=== PATIENT | female | born 1940 | race Caucasian/White ===

== ENCOUNTER 2017-06-24 23:52 | Inpatient (IN) ==
[2017-06-25] MEDS ORDERED: ALBUTEROL/IPRATROPIUM 2.5mg-0.5mg/3ml NEB AEROSOL ONE (00:19)
--- NOTE | 2017-06-25 00:38 | Emergency Department Report ---
Asthma HPI - General Chief Complaint: Upper Respiratory Infection Stated Complaint: decreased loc, decreased resp Time Seen by Provider: 06/24/17 23:56 Source: patient, EMS, RN notes reviewed (the nurse taking care of the patient also contributed to her history) Mode of arrival: EMS Limitations: no limitations - History of Present Illness HPI Narrative: Over the past 48 hours since the patient was seen in the ER for transient hypoxemia over the weekend, patient has developed elevated temperature up to 100.2, and increasing weakness, increasing somnolence, and tonight the patient was found to be hypotensive with significant hypoxemia requiring 5 L of oxygen. Normally night the patient uses 2 L of oxygen and while she is awake and active does not require oxygen at all. Currently the patient has no complaint, and the half-way states that the patient had no complaints throughout the past 2 days. Patient seemed to have respiratory difficulty in route, was given one albuterol treatment, and her respiratory difficulty seemed to improve. Patient does have a history of congestive heart failure and COPD, and is oxygen dependent at night. Nursing reported one episode of hypotension with blood pressure 82/48, however on recheck by the same nurse as well as EMS, patient had normal blood pressures of 111 to 115 systolic. Uncertain whether this one reading of low blood pressure was accurate. - Related Data Home Medications Medication Instructions Recorded Confirmed Acetaminophen [Acetaminophen Extra 1,000 mg PO TID 05/26/17 06/25/17 Strength] Ascorbate Calcium [Vitamin C] 500 mg PO BID 05/26/17 06/25/17 Aspirin [Aspirin EC] 81 mg PO DAILY 05/26/17 06/25/17 Bisacodyl Supp [Dulcolax] 10 mg RECTALLY DAILY PRN 05/26/17 06/25/17 Calcium 500 + D [Os Rajat-D 500] 1 tab PO DAILY 05/26/17 06/25/17 Cholecalciferol (Vitamin D3) 2,000 unit PO DAILY 05/26/17 06/25/17 [Vitamin D3] Citalopram [Celexa] 20 mg PO DAILY 05/26/17 06/25/17 CloNIDine [Catapres] 0.1 mg PO HS 05/26/17 06/25/17 Codeine Phosphate/Guaifenesin 5 - 10 ml PO NOON PRN 05/26/17 06/25/17 [Robafen AC Oral Solution] Divalproex ER [Depakote ER] 1,500 mg PO HS 05/26/17 06/25/17 Divalproex ER [Depakote ER] 250 mg PO HS 05/26/17 06/25/17 Furosemide [Lasix] 20 mg PO DAILY 05/26/17 06/25/17 Lisinopril [Prinivil] 2.5 mg PO HS 05/26/17 06/25/17 Mag Hydrox/Aluminum Hyd/Simeth 30 ml PO Q4H PRN 05/26/17 06/25/17 [Alum-Mag Hydroxide-Simeth Liq] Magnesium Hydroxide [Milk of 30 ml PO DAILY PRN 05/26/17 06/25/17 Magnesia] Metformin HCl [Glucophage] 500 mg PO BIDWM 05/26/17 06/25/17 Multi-Vitamin Plain [Theragran] 1 tab PO DAILY 05/26/17 06/25/17 Naproxen [Naprosyn 500 mg] 500 mg PO BID PRN 05/26/17 06/25/17 Oxybutynin Chloride [Oxybutynin 10 mg PO DAILY 05/26/17 06/25/17 Chloride ER] Quetiapine Fumarate 200 mg PO NOON 05/26/17 06/25/17 Quetiapine Fumarate [Seroquel] 300 mg PO BID 05/26/17 06/25/17 Simvastatin [Simvastatin] 20 mg PO HS 05/26/17 06/25/17 Trazodone [Desyrel] 25 mg PO QAM 05/26/17 06/25/17 Allergies Allergy/AdvReac Type Severity Reaction Status Date / Time amoxicillin [From Augmentin] Allergy Verified 06/25/17 00:05 clavulanic acid Allergy Verified 06/25/17 00:05 [From Augmentin] Review of Systems All systems: reviewed and negative except as stated PFSH Patient Stated Medical History Cardiac Arrhythmia Yes Congestive Heart Failure Yes Diabetes Mellitus Type 2 Yes Hx Incontinence Yes Other Yes: Urethral Stenosis Other Musculoskeletal Yes: Kyphosis, Costochondritis Depression Yes Schizophrenia Yes Other Behavioral Health Yes: Tardive Dyskinesia, Psychogenic polydipsia COPD Medical History Updates: Unknown. From med list: CAD. Constipation. Osteopenia. Depression. Bipolar D/o. CHF. HTN. DM. HL. Overactive bladder. Insomnia - Social History Smoking status: Unknown if ever smoked Substance use type: does not use Physical Exam - Limitations Limitations: no limitations - General General appearance: alert - Normal Exams: Head:: Normocephalic without trauma Eyes:: Pupils are PERRLA w/ EOMI, No scleral icterus, irritation, or foreign bodies noted ENMT:: No facial trauma, nasal exudates, pharyngeal erythema, or exudates are noted Neck:: Full range of motion, without adenopathy, JVD, bruits or thyromegaly Abdomen:: Bowel sounds positive, soft, non-tender, non-distended, no hepatosplenomegaly, masses or bruits noted Lymphatic:: No lymphadenopathy, or lymphedema noted Musculoskeletal:: No tenderness, or deformity noted, good range of motion, all extremities Integumentary:: No rashes, hives, or bruising noted, hair and nails, without abnormality Neurological:: Patient is alert, and oriented, cranial nerves, motor/sensory/ cerebellar, exams w/o gross deficits, to observation Psychiatric:: Patient exhibits, appropriate attention, emotion and affect - Chest Chest inspection: Present: normal inspection, symmetric chest wall rise. Absent : tenderness - Respiratory Respiratory exam: Present: wheezes (mild only at the end of expiration), crackles (dense coarse crackles in the bases bilaterally). Absent: normal lung sounds bilaterally (course rhonchi at the end of expiration, with mild wheezes only.), respiratory distress, stridor, accessory muscle use, prolonged expiratory phase - Skin Skin exam: Present: other (patient has no edema, no tenderness of the limbs) Course Vital Signs Temperature 98.5 F 06/24/17 23:52 Pulse Rate 96 06/24/17 23:52 Respiratory Rate 22 06/24/17 23:52 Blood Pressure 111/53 06/24/17 23:52 Pulse Oximetry 92 06/24/17 23:52 Temperature 98.5 F 06/24/17 23:52 Pulse Rate 87 06/25/17 03:00 Respiratory Rate 18 06/25/17 00:36 Blood Pressure 119/59 06/25/17 03:00 Pulse Oximetry 95 06/25/17 03:00 Dyspnea - MDM Narrative Medical decision making narrative: Mild hypoxemia, 88-89% on 5 L nasal cannula. Patient continues to have no subjective dyspnea Patient is given one DuoNeb treatment in the ER - modest improvement, no significant improvement in oxygenation. CBC shows mild elevation of white blood cell count, no significant left shift CMP normal Chest x-ray shows diffuse pulmonary infiltrates consistent with pulmonary edema , right infrahilar region appears possibly more dense than prior films, indicating possible right middle to right lower lobe consolidation. Patient is started on Levaquin 750 mg IV Lactate is normal Patient is discussed with Dr. Larsen, we will admit the patient inpatient for hypoxemia with present right lower lobe pneumonia. - Lab Data Result diagrams: 06/25/17 00:27 06/25/17 00:27 Lab Results 06/25/17 06/25/17 06/25/17 Range/Units 00:27 00:27 00:27 WBC 12.8 H D (4.5-11.0) T/MM3 RBC 3.08 L (4.00-5.20) M/MM3 Hgb 9.2 L (12-16) GM/DL Hct 30.9 L (36-46) % MCV 100.3 H (80-100) UM3 MCH 29.9 (26-34) UUG MCHC 29.8 L (31-37) GM/DL RDW Std Deviation 59.8 H (36.9-50.2) FL Plt Count 253 (130-400) T/MM3 MPV 10.3 (9.4-12.4) UM3 Immature Gran % (Auto) 0.3 (0.0-0.5) % Neut % (Auto) 60.1 (33-66) % Lymph % (Auto) 26.9 (23-45) % [place] % (Auto) 10.9 H (0-9.0) % Eos % (Auto) 1.4 (0-4) % Baso % (Auto) 0.4 (0-2) % Neut # (Auto) 7.7 (1.8-7.7) T/MM3 Lymph # (Auto) 3.5 (1-4.8) T/MM3 [place] # (Auto) 1.4 H (0-0.8) T/MM3 Eos # (Auto) 0.2 (0-0.5) T/MM3 Baso # (Auto) 0.1 (0-0.2) T/MM3 Abs Immat Gran (auto) 0.04 H (0.00-0.03) T/MM3 Turbidity < 20 (0-20) Sodium 147 H (134-144) MEQ/L Potassium 4.1 (3.6-5) MEQ/L Chloride 102 (98-107) MEQ/L Carbon Dioxide 35 H (22-30) MEQ/L Anion Gap 10 (5-15) MEQ/L BUN 17.0 (7-17) MG/DL Creatinine 0.7 (0.7-1.2) mg/dL GFR Calculation 81 BUN/Creatinine Ratio 24 (6-26) RATIO Glucose 133 H (65-110) MG/DL Calculated Osmolality 286 H (261-280) MOSM/KG Calcium 9.2 (8.4-10.2) MG/DL Total Bilirubin 0.20 (0.20-1.30) MG/DL Conjugated Bilirubin 0.00 (0.00-0.30) mg/dL Unconjugated Bilirubin 0.00 (0.00-1.1) mg/dL Icterus Index < 2 (0-7) AST 13 L (14-36) U/L ALT 15 (9-52) U/L Alkaline Phosphatase 60 (38-126) U/L Troponin I < 0.012 (0-0.12) ng/ml NT-Pro-B Natriuret Pep 316 H (0-175) pg/mL Total Protein 7.8 (6.3-8.2) g/dL Albumin 3.8 (3.5-5.0) g/dL Globulin 4.0 H (2.4-3.6) G/DL Albumin/Globulin Ratio 1.0 L (1.1-2.2) RATIO Plasma Lactate 1.5 (0.6-2.2) MMOL/L Specimen Hemolysis < 15 (0-25) Influenza Type A (PCR) (Negative) Influenza Type B (PCR) (Negative) 06/25/17 Range/Units 02:26 WBC (4.5-11.0) T/MM3 RBC (4.00-5.20) M/MM3 Hgb (12-16) GM/DL Hct (36-46) % MCV (80-100) UM3 MCH (26-34) UUG MCHC (31-37) GM/DL RDW Std Deviation (36.9-50.2) FL Plt Count (130-400) T/MM3 MPV (9.4-12.4) UM3 Immature Gran % (Auto) (0.0-0.5) % Neut % (Auto) (33-66) % Lymph % (Auto) (23-45) % [place] % (Auto) (0-9.0) % Eos % (Auto) (0-4) % Baso % (Auto) (0-2) % Neut # (Auto) (1.8-7.7) T/MM3 Lymph # (Auto) (1-4.8) T/MM3 [place] # (Auto) (0-0.8) T/MM3 Eos # (Auto) (0-0.5) T/MM3 Baso # (Auto) (0-0.2) T/MM3 Abs Immat Gran (auto) (0.00-0.03) T/MM3 Turbidity (0-20) Sodium (134-144) MEQ/L Potassium (3.6-5) MEQ/L Chloride (98-107) MEQ/L Carbon Dioxide (22-30) MEQ/L Anion Gap (5-15) MEQ/L BUN (7-17) MG/DL Creatinine (0.7-1.2) mg/dL GFR Calculation BUN/Creatinine Ratio (6-26) RATIO Glucose (65-110) MG/DL Calculated Osmolality (261-280) MOSM/KG Calcium (8.4-10.2) MG/DL Total Bilirubin (0.20-1.30) MG/DL Conjugated Bilirubin (0.00-0.30) mg/dL Unconjugated Bilirubin (0.00-1.1) mg/dL Icterus Index (0-7) AST (14-36) U/L ALT (9-52) U/L Alkaline Phosphatase (38-126) U/L Troponin I (0-0.12) ng/ml NT-Pro-B Natriuret Pep (0-175) pg/mL Total Protein (6.3-8.2) g/dL Albumin (3.5-5.0) g/dL Globulin (2.4-3.6) G/DL Albumin/Globulin Ratio (1.1-2.2) RATIO Plasma Lactate (0.6-2.2) MMOL/L Specimen Hemolysis (0-25) Influenza Type A (PCR) Negative (Negative) Influenza Type B (PCR) Negative (Negative) Disposition Clinical Impression: Hypoxemia Pneumonia Qualifiers: Pneumonia type: due to unspecified organism Laterality: right Lung location: lower lobe of lung Qualified Code(s): J18.1 - Lobar pneumonia, unspecified organism Disposition: To [facility] Acute Care Condition: Stable Prescriptions: No Action Codeine Phosphate/Guaifenesin [Robafen AC Oral Solution] 5 - 10 ml PO NOON PRN PRN Reason: Prn Orders Mag Hydrox/Aluminum Hyd/Simeth [Alum-Mag Hydroxide-Simeth Liq] 30 ml PO Q4H PRN PRN Reason: Prn Orders Lisinopril [Prinivil] 2.5 mg PO HS Bisacodyl Supp [Dulcolax] 10 mg RECTALLY DAILY PRN PRN Reason: Constipation CloNIDine [Catapres] 0.1 mg PO HS Simvastatin [Simvastatin] 20 mg PO HS Multi-Vitamin Plain [Theragran] 1 tab PO DAILY Calcium 500 + D [Os Rajat-D 500] 1 tab PO DAILY Furosemide [Lasix] 20 mg PO DAILY Cholecalciferol (Vitamin D3) [Vitamin D3] 2,000 unit PO DAILY Trazodone [Desyrel] 25 mg PO QAM Citalopram [Celexa] 20 mg PO DAILY Oxybutynin Chloride [Oxybutynin Chloride ER] 10 mg PO DAILY Divalproex ER [Depakote ER] 250 mg PO HS Divalproex ER [Depakote ER] 1,500 mg PO HS Quetiapine Fumarate [Seroquel] 300 mg PO BID Metformin HCl [Glucophage] 500 mg PO BIDWM Quetiapine Fumarate 200 mg PO NOON Aspirin [Aspirin EC] 81 mg PO DAILY Magnesium Hydroxide [Milk of Magnesia] 30 ml PO DAILY PRN PRN Reason: Constipation Naproxen [Naprosyn 500 mg] 500 mg PO BID PRN PRN Reason: Pain /Fever Acetaminophen [Acetaminophen Extra Strength] 1,000 mg PO TID Ascorbate Calcium [Vitamin C] 500 mg PO BID Referrals: Bethanie Santana MD [Family Provider] - - Seen By: physician
[2017-06-25] MEDS ORDERED: LEVOFLOXACIN PB 750 MG/150 ML BAG IV ONE (02:35)
[2017-06-25] MEDS: SALINE FLUSH 10ml SYRINGE IVF PRN (03:07)
[2017-06-25] MEDS: NS 1,000 ML IV SCH ×2 (03:08→20:13)
[2017-06-25] MEDS ORDERED: BISACODYL 10 MG SUPPOSITORY RECTALLY PRN (04:05)
[2017-06-25] MEDS ORDERED: VANCOMYCIN - PHARMACY CONSULT MC ONE (04:05)
[2017-06-25] MEDS ORDERED: ACETAMINOPHEN 325 MG TABLET PO PRN (04:05)
[2017-06-25] MEDS ORDERED: NAPROXEN 500 MG TABLET PO PRN (04:05)
[2017-06-25] MEDS: ALBUTEROL/IPRATROPIUM 2.5mg-0.5mg/3ml NEB AEROSOL SCH ×5 (04:53→21:04)
--- NOTE | 2017-06-25 04:57 | History & Physical Report ---
History of Present Illness Date: 06/25/17 Chief complaint: fatigue, fever, hypoxia HPI: Ms Hernandez is a 77 y/o resident [facility] [place] [facility] w/ past medical h/o COPD, hypoxia at night requiring 2-3 L/min O2 per [place], CHF, depression, schizophrenia and Type 2 DM who presents to ER w/ increasing hypoxia and O2 needs. Patient per report has had fatigue, malaise, fever to 100.2 F yesterday, cough and hypoxia at detention requiring increasing amounts of O2. She was seen in ER within past week for hypoxia however improved w/ neb treatments. Patient returns w/ worsening symptoms and currently on 5 L/min. Received neb treatment per eMS en route to ER In ER patient was afebrile, slightly tachypneic however did not c/o feeling SOA or dsypneic. Her WBC was 12.8 and on CXR has RLL infiltrate not on prior CXR done within the past week. BNP was 316 and lactate wnl. Patient started on Levaquin 750mg IV and will be admitted to the Hospitalist service for further evaluation and management. Patient currently states she is feeling better and on 4 L/min O2 per [place]. She provides some of the history however most is obtained from nursing, ER and NH notes. Review of Systems All systems PM: 10-point ROS was reviewed, no additional remarkable complaints except Past Medical History Patient Stated Medical History Cardiac Arrhythmia Yes Congestive Heart Failure Yes Pneumonia Yes: Current Diabetes Mellitus Type 2 Yes Hx Incontinence Yes Other Yes: Urethral Stenosis Other Musculoskeletal Yes: Kyphosis, Costochondritis Depression Yes Schizophrenia Yes Other Behavioral Health Yes: Tardive Dyskinesia, Psychogenic polydipsia COPD Medical History Updates: Unknown. From med list: CAD. Constipation. Osteopenia. Depression. Bipolar D/o. CHF. HTN. DM. HL. Overactive bladder. Insomnia Family History Updates: No specific Family Hx updates - Social History Smoking status: Current every day smoker Medications Home Medications Medication Instructions Recorded Confirmed Type Acetaminophen [Acetaminophen Extra 1,000 mg PO TID 05/26/17 06/25/17 History Strength] Ascorbate Calcium [Vitamin C] 500 mg PO BID 05/26/17 06/25/17 History Aspirin [Aspirin EC] 81 mg PO DAILY 05/26/17 06/25/17 History Bisacodyl Supp [Dulcolax] 10 mg RECTALLY DAILY PRN 05/26/17 06/25/17 History Calcium 500 + D [Os Rajat-D 500] 1 tab PO DAILY 05/26/17 06/25/17 History Cholecalciferol (Vitamin D3) 2,000 unit PO DAILY 05/26/17 06/25/17 History [Vitamin D3] Citalopram [Celexa] 20 mg PO DAILY 05/26/17 06/25/17 History CloNIDine [Catapres] 0.1 mg PO HS 05/26/17 06/25/17 History Codeine Phosphate/Guaifenesin 5 - 10 ml PO NOON PRN 05/26/17 06/25/17 History [Robafen AC Oral Solution] Divalproex ER [Depakote ER] 1,500 mg PO HS 05/26/17 06/25/17 History Divalproex ER [Depakote ER] 250 mg PO HS 05/26/17 06/25/17 History Furosemide [Lasix] 20 mg PO DAILY 05/26/17 06/25/17 History Lisinopril [Prinivil] 2.5 mg PO HS 05/26/17 06/25/17 History Mag Hydrox/Aluminum Hyd/Simeth 30 ml PO Q4H PRN 05/26/17 06/25/17 History [Alum-Mag Hydroxide-Simeth Liq] Magnesium Hydroxide [Milk of 30 ml PO DAILY PRN 05/26/17 06/25/17 History Magnesia] Metformin HCl [Glucophage] 500 mg PO BIDWM 05/26/17 06/25/17 History Multi-Vitamin Plain [Theragran] 1 tab PO DAILY 05/26/17 06/25/17 History Naproxen [Naprosyn 500 mg] 500 mg PO BID PRN 05/26/17 06/25/17 History Oxybutynin Chloride [Oxybutynin 10 mg PO DAILY 05/26/17 06/25/17 History Chloride ER] Quetiapine Fumarate 200 mg PO NOON 05/26/17 06/25/17 History Quetiapine Fumarate [Seroquel] 300 mg PO BID 05/26/17 06/25/17 History Simvastatin [Simvastatin] 20 mg PO HS 05/26/17 06/25/17 History Trazodone [Desyrel] 25 mg PO QAM 05/26/17 06/25/17 History Allergies Allergy/AdvReac Type Severity Reaction Status Date / Time amoxicillin [From Augmentin] Allergy Verified 06/25/17 00:05 clavulanic acid Allergy Verified 06/25/17 00:05 [From Augmentin] Exam Vital Signs: Temperature 97.5 F 06/25/17 03:57 Pulse Rate 91 06/25/17 03:57 Respiratory Rate 18 06/25/17 03:57 Blood Pressure 129/74 06/25/17 03:57 Pulse Oximetry 94 06/25/17 03:57 Telemetry Rhythm: Sinus Rhythm Height/Weight/BMI: Height 1.7 m Weight 81.5 kg Body Mass Index 28.1 - Constitutional Present: no acute distress, well nourished - Routine HEENT Exam Head: Present: normocephalic, atraumatic Eye: Present: EOMI, PERRL ENT: Present: mucous membranes dry - Routine Neck Exam Present: supple. Absent: JVD - Routine Respiratory Exam Present: decreased breath sounds, prolonged expiratory phase, rhonchi, wheezes. Absent: accessory muscle use, respiratory distress - Routine Cardiovascular Exam Present: RRR - Routine Abdominal Exam Present: soft, normoactive bowel sounds, non distended, non tender - Routine Extremities Exam Present: edema (trace distal LE edema). Absent: cyanosis, clubbing - Routine Neurological Exam Present: alert - Routine Psychiatric Exam Present: cooperative. Absent: auditory hallucinations, visual hallucinations Comments: Flat affect; Results - Labs CBC & Chem 7: 06/25/17 00:27 06/25/17 00:27 Assessment and Plan Assessment and Plan: Assessment: 1) Acute RLL Pneumonia 2) Acute on chronic hypoxia 3) Acute exacerbation of COPD 4) Type 2 DM on Metformin 5) Schizophrenia 6) Depression Plan: Admit to Hospitalist Levaquin 750mg IV q 24 hours Consistent carb diet AC and HS accuchecks Add Vancomycin - pharmacy to manage RT protocols DuoNeb q 4 hours Oxygen therapy - titrated to keep sats >90% Supportive Care Continue home meds as indicated I have discussed the plan of care w/ the patient ALEXANDRA Assessment Severe sepsis (SIRS markers - Leukocytosis, tachycardic, elevated lactate, encephalopathy) Health Care Associated Pneumonia Acute respiratory insufficiency Encephalopathy Hypernatremia (POA) COPD Suspect restrictive lung disease secondary to kyphosis Tobacco dependency CHF HTN HDL Type II DM OAB Constipation Schizophrenia Depression/Bipolar Tardive dyskinesia Psychogenic polydipsia Overweight Plan Inpatient admission at [facility] for treatment of sepsis secondary to pneumonia Anticipate greater than 2 midnights of care needed. Levaquin started in ED and Vancomycin added by Telehospitalist. Will add cefepime to due health care associated pneumonia. Supplemental O2 to maintain saturations. Neb Treatments of DuoNeb and Budesonide. Acapella to help loosen secretions. Robitussin DM and Ricola prn cough. RT for tobacco cessation. Check ECHO due to Hx CHF. IVF for support, monitoring volume status. Trend Lactate. Monitor sugars - hold metformin secondary to increased lactate. SCD for DVT prevention. Full code as per her request. Care to return to Dr Santana at time of discharge from [facility]. DVT Prophylaxis: SCD's Resuscitation Status: Full Code - Physician Narrative Physician: Tian Cooper MD Narrative: Date: 06/25/17 Time: 1135 I have independently interviewed and examined pt. Chart reviewed. Reviewed above note and concur. CC: Increasing difficulty breathing, decreased LOC. HPI: 77 y/o female present to [facility] ED via EMS secondary to increasing difficulty breathing and decreased LOC. Breathing problematic over the past several days. Recently in ED secondary to dyspnea-WBC normal, CXR showing no infiltrate but pulmonary edema. Discharged with Neb treatment. Neb treatments have help some, but patient continues to have severe cough and congestion. More hypoxic and SOA at night despite her home nocturnal oxygen. More fatigue and lethargic. Notes chest wall discomfort form cough. Hard to mobilize sputum. No palpitations or chest pressure. Denies increasing LE edema. Appetite stable - no N/V or ab pain. Temp elevations at [place] to 100.2. Seen in ED. WBC elevated. HR in 90' s. Needing 4L O2 to maintain saturations. CXR showing infiltrate. Admitted to inpatient for further evaluation and treatment. PMHx: CHF, Cardiac arrhythmia, HTN, HDL, COPD, Nocturnal hypoxia, Type II DM, OAB, Constipation, Depression/Bipolar, Schizophrenia, Insomnia ALL: Augmentin MEDS: see MAR SHx: Resides at [place] in [facility]. Smokes. Dr Santana PCP FHx: Not able to obtain from pt. ROS: As in HPI. Accurate ROS limited secondary to pt's schizophrenia and acute illness EXAM GEN: WDWNWF awake alert, looks tired HEENT: NC/AT PERRLA EOMI MMM NECK: Supple, trachea midline LUNGS: decreased bilaterally with course breath sounds, diminished air movement. Frequent harsh cough. CV: Regular without murmur EXT: no clubbing or cyanosis, Trace LE edema bilaterally SKIN: Warm and dry Neuro: CN II-XII intact. No focal deficits Psych: awake alert appropriate MS: normal muscle tone in upper/lower ext bilaterally Assessment Severe sepsis (SIRS markers - Leukocytosis, tachycardic, elevated lactate, encephalopathy) Health Care Associated Pneumonia Acute respiratory insufficiency Encephalopathy Hypernatremia (POA) COPD Suspect restrictive lung disease secondary to kyphosis Tobacco dependency CHF HTN HDL Type II DM OAB Constipation Schizophrenia Depression/Bipolar Tardive dyskinesia Psychogenic polydipsia Overweight Plan Inpatient admission at [facility] for treatment of sepsis secondary to pneumonia Anticipate greater than 2 midnights of care needed. Levaquin started in ED and Vancomycin added by Telehospitalist. Will add cefepime to due health care associated pneumonia. Supplemental O2 to maintain saturations. Neb Treatments of DuoNeb and Budesonide. Acapella to help loosen secretions. Robitussin DM and Ricola prn cough. RT for tobacco cessation. Check ECHO due to Hx CHF. IVF for support, monitoring volume status. Trend Lactate. Monitor sugars - hold metformin secondary to increased lactate. SCD for DVT prevention. Full code as per her request. Care to return to Dr Santana at time of discharge from [facility]. Hospital Course Summary Disclaimer: The visit summary below is not to be considered part of the above Progress Note. Hospital Course: 06/25/17 Admission Inpatient admission at [facility] for treatment of sepsis secondary to pneumonia Anticipate greater than 2 midnights of care needed. Levaquin started in ED and Vancomycin added by Telehospitalist. Will add cefepime to due health care associated pneumonia. Supplemental O2 to maintain saturations. Neb Treatments of DuoNeb and Budesonide. Acapella to help loosen secretions. Robitussin DM and Ricola prn cough. RT for tobacco cessation. Check ECHO due to Hx CHF. IVF for support, monitoring volume status. Trend Lactate. Monitor sugars - hold metformin secondary to increased lactate. Carb consistent diet. SCD for DVT prevention. Full code as per her request. Care to return to Dr Santana at time of discharge from [facility].
[2017-06-25] MEDS ORDERED: VANCOMYCIN 1,500 MG in NS 250ml 500 ML IV ONE (05:07)
--- NOTE | 2017-06-25 07:52 | XRay Report ---
INDICATION: dyspnea, hypoxemia PROCEDURE: CHEST 2-VIEWS UPRIGHT (PA & LAT) Encounter: Initial COMPARISON: June 22, 2017 FINDINGS: Worsening interstitial prominence with interstitial and airspace opacities. There is new consolidation in the retrocardiac left lower lobe seen overlying the lower thoracic spine. No pneumothorax or significant pleural fluid. Heart size and mediastinal contours are stable. Impression: Left lower lobe pneumonia with moderate pulmonary edema. .
--- NOTE | 2017-06-25 08:01 | Pharmacy Consult-Antibiotics ---
Pharmacy Consult-Vancomycin - Laboratory Information WBC 12.8 T/MM3 (4.5-11.0) H D 06/25/17 00:27 BUN 17.0 MG/DL (7-17) 06/25/17 00:27 Creatinine 0.7 mg/dL (0.7-1.2) 06/25/17 00:27 Procalcitonin < 0.05 NG/ML 06/25/17 06:17 - Consult Information VANCOMYCIN CONSULT: Dx: RLL Pneumonia, Chronic Hypoxia, Acute exacerbation of COPD Current Renal Function: S Cr = 0.7 mg/dl. Calculated Cr Cl = 50 mL/min WBC's = 12.9 T/mm2 (elevated) Lactate = 2.7 mmol/L (elevated) 24-h Tmax = 97.5 degree F FF, a 77 yo female resident of a [facility], was admitted with Pneumonia ( Chest XR) and hypoxia with O2 at 5 L/min. I was paged @ 0500 and I started with a Vancomycin 1,500 mg IV bolus. I have now started Vancomycin 1,500 mg iv every 18 hours. I'm giving the second dose closer to the first dose to act as a bolus. The pharmacy will continue to monitor and adjust regimen to maintain therapeutic levels. Thank you for the Vancomycin Protocol, Sd Robb , Pharmacist.
[2017-06-25] MEDS: CITALOPRAM 20 MG TABLET PO SCH (09:22)
[2017-06-25] MEDS: FUROSEMIDE 20 MG TABLET PO SCH (09:22)
[2017-06-25] MEDS: ASPIRIN *EC* 81 MG TABLET PO SCH (09:22)
[2017-06-25] MEDS: MULTI-VITAMIN PLAIN TABLET PO SCH (09:22)
[2017-06-25] MEDS: TRAZODONE 50 MG TABLET PO SCH (09:23)
[2017-06-25] MEDS: QUETIAPINE 100 MG TABLET PO SCH ×2 (09:24→20:25)
[2017-06-25 09:35] VITALS: BMI 29.8
[2017-06-25] MEDS: QUETIAPINE 200 MG TABLET PO SCH (12:18)
[2017-06-25] MEDS: CEFEPIME 1 GM in NS 50 ML IV SCH ×3 (13:13→23:49)
--- NOTE | 2017-06-25 14:03 | Echocardiogram ---
DATE 06/25/2017 INDICATION Congestive heart failure TECHNICAL QUALITY: Technically fair 2D, M-mode and Doppler echocardiographic images were submitted for interpretation. FINDINGS 1. CARDIAC CHAMBERS. Left atrium is mildly enlarged, measures 4.4 cm. All other cardiac chambers are normal in size. Aortic root diameter is normal. RV size and contractility appear normal. 2. LV FUNCTION. Wall thickness is normal. Wall motion analysis is normal. Systolic function is normal. EF is estimated at 70%. Diastolic dysfunction Grade I/IV is present. This may be normal for patient's age. 3. VALVES. Aortic and mitral valves exhibit sclerotic changes. Valve opening is normal. Mitral annular calcification posteriorly is present. Valve excursion is normal. Tricuspid valve is not well seen but does not exhibit any significant abnormality. 4. DOPPLER. Doppler shows a trace of tricuspid regurgitation with a systolic PA pressure estimated at 43 mmHg per Bernoulli equation. There is some increased flow velocity noted at the aortic valve and subaortic valve levels, in order 2.38 and 1.85 m/sec with calculated aortic valve area remaining normal at 2.5 cm2. Peak and mean pressure gradient of 23 and 12 mmHg. The signal at the LVOT level appears delayed. Valsalva maneuver was not performed. There was a mild pressure gradient across the mitral valve of 3 mmHg indicative of mild mitral stenosis. Maximum gradient was 11 mmHg. I don't appreciate REINA or significant LVH although the septum appears sigmoid associated with unfolding of the aorta. The patient is tachycardic during the study which may in part explain the increased flow velocities and the gradients as above. IMPRESSION 1. Mild left atrial enlargement. 2. Normal LV systolic function actually appearing hyperdynamic, LVEF of 70%. 3. Mild diastolic dysfunction, normal for patient's age. 4. Increased flow velocity at the LVOT level as described above, clinical correlation is recommended. Additional Doppler with Valsalva maneuver may be warranted. 5. Mild pulmonary hypertension. 6. Sigmoid septum. 7. Mitral annular calcification with hemodynamic of mild mitral stenosis, at a heart rate of 100 beats per minute. MTDD
[2017-06-25] MEDS: LISINOPRIL 2.5 MG TABLET PO SCH (20:25)
[2017-06-25] MEDS: SIMVASTATIN 20 MG TABLET PO SCH (20:26)
[2017-06-25] MEDS: BUDESONIDE INH.SOLN 0.5mg/2ml NEB AEROSOL SCH (21:04)
[2017-06-25] MEDS ORDERED: FALL RISK - PHARMACY CONSULT MC ONE (21:24)
[2017-06-26] MEDS: ALBUTEROL/IPRATROPIUM 2.5mg-0.5mg/3ml NEB AEROSOL SCH ×7 (01:02→23:43)
[2017-06-26] MEDS: NS 1,000 ML IV SCH ×2 (01:31→11:27)
[2017-06-26] MEDS: LEVOFLOXACIN PB 750 MG/150 ML BAG IV SCH (03:48)
[2017-06-26] MEDS: CEFEPIME 1 GM in NS 50 ML IV SCH ×3 (06:10→17:37)
[2017-06-26] MEDS: MENTHOL COUGH DROPS (RICOLA) MM PRN (06:13)
[2017-06-26] MEDS: CITALOPRAM 20 MG TABLET PO SCH (08:16)
[2017-06-26] MEDS: TRAZODONE 50 MG TABLET PO SCH (08:16)
[2017-06-26] MEDS: MULTI-VITAMIN PLAIN TABLET PO SCH (08:17)
[2017-06-26] MEDS: FUROSEMIDE 20 MG TABLET PO SCH (08:17)
[2017-06-26] MEDS: ASPIRIN *EC* 81 MG TABLET PO SCH (08:17)
[2017-06-26] MEDS: QUETIAPINE 100 MG TABLET PO SCH ×2 (08:17→20:56)
[2017-06-26] MEDS: BUDESONIDE INH.SOLN 0.5mg/2ml NEB AEROSOL SCH ×2 (09:20→20:04)
--- NOTE | 2017-06-26 09:43 | Progress Note ---
- Date 06/26/17 Subjective: Patient seen sitting in her chair this morning. Her speech is somewhat difficult to understand, but she is able to answer questions appropriately. Reports good appetite. Recent BM. No respiratory distress or other concerns at present. RT is present to give her 2nd breathing tx of the morning. Objective Vital signs: Temperature 99.8 F 06/26/17 07:00 Pulse Rate 83 06/26/17 07:00 Respiratory Rate 20 06/26/17 07:00 Blood Pressure 152/67 H 06/26/17 07:00 Pulse Oximetry 93 06/26/17 08:12 Height/Weight/BMI: Height 1.7 m Weight 84.5 kg Body Mass Index 29.8 - Constitutional Present: no acute distress, well nourished, well developed - Routine HEENT Exam Head: Present: normocephalic, atraumatic Comments: edentulous - Routine Respiratory Exam Present: decreased breath sounds, diminished air movement - Routine Cardiovascular Exam Present: RRR, no murmur - Routine Abdominal Exam Present: soft, non distended, non tender - Routine Extremities Exam Present: no edema, normal capillary refill - Routine Skin Exam Present: dry, warm - Routine Neurological Exam Present: alert - Routine Lymphatic Exam Lymphatic: Absent: adenopathy - Routine Psychiatric Exam Present: normal affect, cooperative Results - Labs CBC & Chem 7: 06/26/17 03:59 06/26/17 03:59 Assessment and Plan Assessment and Plan: Assessment Severe sepsis (SIRS markers - Leukocytosis, tachycardic, elevated lactate, encephalopathy) Health Care Associated Pneumonia (negative for influenza) Acute respiratory insufficiency Encephalopathy Hypernatremia (POA) COPD (Home O2 2L at night only) Suspect restrictive lung disease secondary to kyphosis Mild pulmonary hypertension Tobacco dependency CHF - diastolic/valvular HTN HDL Type II DM OAB Macrocytic anemia Constipation Schizophrenia Depression/Bipolar Tardive dyskinesia Psychogenic polydipsia Overweight Plan Continues on Levaquin, Vancomycin and cefepime due health care associated pneumonia. Leukocytosis improved. Supplemental O2 to maintain saturations - currently requiring 2 L. Continue Neb Treatments of DuoNeb and Budesonide. Acapella to help loosen secretions. Robitussin DM and Ricola prn cough. Metformin remains on hold secondary to increased lactate on admission (has normalized). BS's have been stable. DVT Prophylaxis: SCD's Resuscitation Status: Full Code - Time spent with patient Time with patient PN: 25 minutes - Physician Narrative Physician: Tian Cooper MD Narrative: Date: 06/26/17 Time: [id number] Have independently interviewed and examined pt. Chart reviewed. Case discussed with CM and my PA. Care plan developed with my supervision; agree with above. Doing okay today. Breathing about the same. Still with cough/congestion. Eating well-not having upset stomach or nausea. Looks less weak and tired. Lungs: decreased bilaterally. CV: regular AB: soft nt/nd MSE: awake alert Plan: Continue with antibiotics. May d/c IVF as taking oral well. Hold metformin -sugars stable currently. PT/OT to help improve strength. Wean O2 as able - patient does use 2-3L at night. Recheck lab in am. Continue with supportive care. Hospital Course Summary Disclaimer: The visit summary below is not to be considered part of the above Progress Note. Hospital Course: 06/25/17 Admission Inpatient admission at [facility] [place] for treatment of sepsis secondary to pneumonia Anticipate greater than 2 midnights of care needed. Levaquin started in ED and Vancomycin added by Telehospitalist. Will add cefepime to due health care associated pneumonia. Supplemental O2 to maintain saturations. Neb Treatments of DuoNeb and Budesonide. Acapella to help loosen secretions. Robitussin DM and Ricola prn cough. RT for tobacco cessation. Check ECHO due to Hx CHF. IVF for support, monitoring volume status. Trend Lactate. Monitor sugars - hold metformin secondary to increased lactate. Carb consistent diet. SCD for DVT prevention. Full code as per her request. Care to return to Dr Santana at time of discharge from [facility] [place]. 06/26/17 Continues on Levaquin, Vancomycin and cefepime due health care associated pneumonia. Leukocytosis improved. Supplemental O2 to maintain saturations - currently requiring 2 L. Continue Neb Treatments of DuoNeb and Budesonide. Acapella to help loosen secretions. Robitussin DM and Ricola prn cough. Metformin remains on hold secondary to increased lactate on admission (has normalized). BS's have been stable. Will discontinue IVF as oral intake doing well. Consult PT/OT to help improve strength and functional abilities.
[2017-06-26] MEDS: QUETIAPINE 200 MG TABLET PO SCH (11:28)
[2017-06-26] MEDS: SIMVASTATIN 20 MG TABLET PO SCH (20:59)
[2017-06-26] MEDS: LISINOPRIL 2.5 MG TABLET PO SCH (20:59)
[2017-06-27] MEDS: CEFEPIME 1 GM in NS 50 ML IV SCH ×4 (00:20→18:39)
[2017-06-27] MEDS: ALBUTEROL/IPRATROPIUM 2.5mg-0.5mg/3ml NEB AEROSOL SCH ×6 (02:40→23:18)
[2017-06-27] MEDS: LEVOFLOXACIN PB 750 MG/150 ML BAG IV SCH (04:48)
[2017-06-27] MEDS: BUDESONIDE INH.SOLN 0.5mg/2ml NEB AEROSOL SCH ×2 (07:20→20:22)
[2017-06-27] MEDS: MULTI-VITAMIN PLAIN TABLET PO SCH ×2 (07:47→08:19)
[2017-06-27] MEDS: TRAZODONE 50 MG TABLET PO SCH ×2 (07:47→08:19)
[2017-06-27] MEDS: CITALOPRAM 20 MG TABLET PO SCH ×2 (07:47→08:19)
[2017-06-27] MEDS: QUETIAPINE 100 MG TABLET PO SCH ×3 (07:48→21:01)
[2017-06-27] MEDS: FUROSEMIDE 20 MG TABLET PO SCH ×2 (07:50→08:19)
[2017-06-27] MEDS: ASPIRIN *EC* 81 MG TABLET PO SCH ×2 (07:50→08:19)
--- NOTE | 2017-06-27 09:25 | Progress Note ---
- Date 06/27/17 Subjective: Follow-up: Healthcare acquired pneumonia currently treated with vancomycin, cefepime and Levaquin. Hospital day #3. Patient is seen resting in bed this morning. She is feeling better. Feels cough is improved. Unable to understand most of what she says this morning. Nurses did note that overnight she was having episodes of apnea with sats dropping to low 80s, with return to 88-94% within seconds. They report that when patient is awake her sats are above 90%. Her oxygen was increased from 2 L to 4 L overnight due to the apnea. This morning, she is still requiring 4 L while awake. Objective Vital signs: Temperature 97.9 F 06/27/17 07:00 Pulse Rate 85 06/27/17 08:00 Respiratory Rate 20 06/27/17 07:20 Blood Pressure 136/66 06/27/17 07:00 Pulse Oximetry 94 06/27/17 07:20 Height/Weight/BMI: Height 1.7 m Weight 84.4 kg Body Mass Index 29.8 - Constitutional Present: no acute distress, well nourished, well developed - Routine HEENT Exam Head: Present: normocephalic, atraumatic ENT: Present: mucous membranes dry - Routine Respiratory Exam Present: CTA bilaterally (auscultated anteriorly lying in bed). Absent: wheezes - Routine Cardiovascular Exam Present: RRR, no murmur - Routine Abdominal Exam Present: soft, non distended, non tender - Routine Extremities Exam Present: no edema, normal capillary refill - Routine Skin Exam Present: dry, warm - Routine Neurological Exam Present: alert - Routine Lymphatic Exam Lymphatic: Absent: adenopathy - Routine Psychiatric Exam Present: normal affect, cooperative Results - Labs CBC & Chem 7: 06/27/17 01:02 06/27/17 01:02 Assessment and Plan Assessment and Plan: Assessment Severe sepsis (SIRS markers - Leukocytosis, tachycardic, elevated lactate, encephalopathy) Health Care Associated Pneumonia (negative for influenza) Acute respiratory insufficiency Encephalopathy Hypernatremia (POA) COPD (Home O2 2L at night only) Suspect restrictive lung disease secondary to kyphosis Mild pulmonary hypertension Tobacco dependency CHF - diastolic/valvular HTN HDL Type II DM OAB Macrocytic anemia Constipation Schizophrenia Depression/Bipolar Tardive dyskinesia Psychogenic polydipsia Overweight Plan Continues on Levaquin, Vancomycin and cefepime for health care associated pneumonia. Day # 3 of antibiotics. Supplemental O2 to maintain saturations - currently requiring 4 L. Encourage nurse to have patient get up today. Wean O2 as able. Chest x-ray ordered given her increased oxygen needs. Continue Neb Treatments of DuoNeb and Budesonide. Acapella to help loosen secretions. Robitussin DM and Ricola prn cough. Resume home metformin. Patient is eating and drinking well. Kenneth Continue with cefepime and levofloxacin-feel can stop vancomycin. Repeat CXR showing increase pulm edema-IVF have been stopped. Will give Lasix 40mg po x1 and also diamox 500mg x1 (CO2 with elevation). Encourage deep breathing-add IS. Will add acapella to help loosen secretions. Encourage work with therapy to help improve strength and functional abilities. Nursing noting somnolence today at noon - will place noon dose of Seroquel on hold. Wean O2 as able. Monitor lab. DVT Prophylaxis: SCD's Resuscitation Status: Full Code - Time spent with patient Time with patient PN: 25 minutes - Physician Narrative Physician: Tian Cooper MD Narrative: Date: 06/27/17 Time: 1440 Have independently interviewed and examined pt. Chart reviewed. Case discussed with CM and my PA. Care plan developed with my supervision; agree with above. Sitting in chair this afternoon. Doing fair. Still notes cough and congestion; chest and ab wall with discomfort at times from cough. Not moving sputum. Eating well-hard to chew without her teeth. No nausea. Nursing reported significant sedation around noon-worried about giving the scheduled Seroquel. Lungs: decreased bilaterally, decreased air movement. CV: regular AB: soft nt MSE: awake alert Plan: Continue with cefepime and levofloxacin-feel can stop vancomycin. Repeat CXR showing increase pulm edema-IVF have been stopped. Will give Lasix 40mg po x1 and also diamox 500mg x1 (CO2 with elevation). Encourage deep breathing-add IS. Will add acapella to help loosen secretions. Encourage work with therapy to help improve strength and functional abilities. Dp tp nursing noting somnolence today at noon - will place noon dose of Seroquel on hold. Wean O2 as able. Monitor lab. Hospital Course Summary Disclaimer: The visit summary below is not to be considered part of the above Progress Note. Hospital Course: 06/25/17 [place] [facility] [place] secondary to pneumonia Anticipate greater than 2 midnights of care needed. Levaquin started in ED and Vancomycin added by Telehospitalist. Will add cefepime to due health care associated pneumonia. Supplemental O2 to maintain saturations. Neb Treatments of DuoNeb and Budesonide. Acapella to help loosen secretions. Robitussin DM and Ricola prn cough. RT for tobacco cessation. Check ECHO due to Hx CHF. IVF for support, monitoring volume status. Trend Lactate. Monitor sugars - hold metformin secondary to increased lactate. Carb consistent diet. SCD for DVT prevention. Full code as per her request. Care to return to Dr Santana at time of [place] [facility] [place] 06/26/17 Continues on Levaquin, Vancomycin and cefepime due health care associated pneumonia. Leukocytosis improved. Supplemental O2 to maintain saturations - currently requiring 2 L. Continue Neb Treatments of DuoNeb and Budesonide. Acapella to help loosen secretions. Robitussin DM and Ricola prn cough. Metformin remains on hold secondary to increased lactate on admission (has normalized). BS's have been stable. Will discontinue IVF as oral intake doing well. Consult PT/OT to help improve strength and functional abilities. 06/27/17 Continues on levofloxacin and cefepime for health care associated pneumonia. Day # 3 of antibiotics. Can stop vancomycin. Supplemental O2 to maintain saturations - currently requiring 4 L. Encourage nurse to have patient get up today. Wean O2 as able. Chest x-ray ordered given her increased oxygen needs. CXR showing increase pulmonary edema-IVF have been stopped. Will give Lasix 40mg po x1 and also Diamox 500mg x1 (CO2 with elevation). Continue Neb Treatments of DuoNeb and Budesonide. Acapella to help loosen secretions. Robitussin DM and Ricola prn cough. Nursing noting somnolence today at noon - will place noon dose of Seroquel on hold. Resume home metformin. Patient is eating and drinking well.
[2017-06-27] MEDS: GUAIFENESIN/DM 5ml ORAL LIQUID PO PRN (09:42)
--- NOTE | 2017-06-27 10:21 | XRay Report ---
INDICATION: increasing O2 needs PROCEDURE: CHEST 2-VIEWS UPRIGHT (PA & LAT) Encounter: Initial COMPARISON: June 25, 2017 FINDINGS: Pulmonary edema is again noted with bilateral lower lobe airspace consolidation. This is somewhat worsened on the right. Small effusions. No pneumothorax. Heart size and mediastinal contours are stable. Impression: Worsening right lower lobe pneumonia or aspiration with superimposed moderate pulmonary edema. .
[2017-06-27] MEDS ORDERED: acetaZOLAMIDE 250 MG TABLET PO ONE (12:22)
[2017-06-27] MEDS ORDERED: FUROSEMIDE 40 MG TABLET PO ONE (12:23)
[2017-06-27] MEDS: QUETIAPINE 200 MG TABLET PO SCH (13:35)
--- NOTE | 2017-06-27 13:37 | Pharmacy Consult-Antibiotics ---
Pharmacy Consult-Vancomycin - Laboratory Information WBC 8.5 T/MM3 (4.5-11.0) 06/27/17 01:02 BUN 11.0 MG/DL (7-17) 06/27/17 01:02 Creatinine 0.6 mg/dL (0.7-1.2) L 06/27/17 01:02 Procalcitonin < 0.05 NG/ML 06/25/17 06:17 Vancomycin Trough 9.95 ug/mL (15-20) L 06/27/17 01:02 - Consult Information VANCOMYCIN CONSULT: FF is a 68 yo female who was admitted with RLL Pneumonia, Chronic Hypoxia, Acute exacerbation of COPD Current Renal Function: S Cr = 0.6 mg/dl. Calculated Cr Cl = 51 mL/min WBC's = 8.5 T/mm2 (elevated) Vanco trough = 9.95 @ 0030 06/27 24-h Tmax = 97.9 degree F The trough was lower that anticipatee so I have changed the Vancomycin 1,500 mg iv every 12 hours @ 0000/1200. The pharmacy will continue to monitor and adjust regimen to maintain therapeutic Vancomycin levels. Thank you for the Vancomycin Protocol, Sd Robb, Pharmacist.
[2017-06-27] MEDS: METFORMIN 500 MG TABLET PO SCH (18:39)
[2017-06-27] MEDS: ACETAMINOPHEN 500 MG TABLET PO SCH ×2 (18:45→21:03)
[2017-06-27] MEDS: ASCORBIC ACID 500 MG TABLET PO SCH (21:00)
[2017-06-27] MEDS: SIMVASTATIN 20 MG TABLET PO SCH (21:01)
[2017-06-27] MEDS: LISINOPRIL 2.5 MG TABLET PO SCH (21:01)
[2017-06-27] MEDS: MENTHOL COUGH DROPS (RICOLA) MM PRN (21:53)
[2017-06-28] MEDS: CEFEPIME 1 GM in NS 50 ML IV SCH ×4 (00:30→18:21)
[2017-06-28] MEDS: ALBUTEROL/IPRATROPIUM 2.5mg-0.5mg/3ml NEB AEROSOL SCH ×5 (03:27→21:11)
[2017-06-28] MEDS: LEVOFLOXACIN PB 750 MG/150 ML BAG IV SCH (03:44)
[2017-06-28] MEDS: BUDESONIDE INH.SOLN 0.5mg/2ml NEB AEROSOL SCH ×2 (08:02→21:11)
[2017-06-28] MEDS: GUAIFENESIN/DM 5ml ORAL LIQUID PO PRN (09:38)
[2017-06-28] MEDS: CITALOPRAM 20 MG TABLET PO SCH (09:39)
[2017-06-28] MEDS: QUETIAPINE 100 MG TABLET PO SCH (09:39)
[2017-06-28] MEDS: CALCIUM 500 + VIT D 200 TABLET PO SCH (09:40)
[2017-06-28] MEDS: TRAZODONE 50 MG TABLET PO SCH (09:40)
[2017-06-28] MEDS: METFORMIN 500 MG TABLET PO SCH ×2 (09:40→18:21)
[2017-06-28] MEDS: ASCORBIC ACID 500 MG TABLET PO SCH ×2 (09:41→22:23)
[2017-06-28] MEDS: FUROSEMIDE 20 MG TABLET PO SCH (09:41)
[2017-06-28] MEDS: ASPIRIN *EC* 81 MG TABLET PO SCH (09:42)
[2017-06-28] MEDS: ACETAMINOPHEN 500 MG TABLET PO SCH ×3 (09:42→22:22)
[2017-06-28] MEDS: MULTI-VITAMIN PLAIN TABLET PO SCH (09:42)
--- NOTE | 2017-06-28 14:16 | Progress Note ---
- Date 06/28/17 Subjective: Mrs. Hernandez was up in a chair when seen. Nursing reported that she's been fatigued /sleepy today. Overnight she had short runs of a narrow complex irregular tachyarrhythmia consistent with atrial fibrillation. Patient reports having palpitations at times and describes chest pain/epigastric pain with cough. Nursing additionally noted episodic desaturations associated with spells of apnea overnight with saturations dropping into the low 80s/upper 70s for 1 or 2 seconds before normalizing. Oxygen flow rate increased from 2 L to 4 L in response to hypoxia. Unclear if the episodes of apnea/hypoxia corresponded to the arrhythmias. Patient continues to complain of cough and dyspnea but denies fever or chills. She denied nausea or heartburn and reports her appetite is fair. She denies chronic oxygen use prior to this hospitalization. Objective Vital signs: Temperature 98.6 F 06/28/17 07:50 Pulse Rate 81 06/28/17 10:16 Respiratory Rate 20 06/28/17 12:09 Blood Pressure 113/57 06/28/17 09:48 Pulse Oximetry 93 -3 L 06/28/17 12:09 Weight down 1.5 kg from yesterday EXAM General-NAD, drowsy, "thick tongued"-moderate dysarthria HEENT-conjunctiva clear, oral membranes dry, neck supple Lungs-respirations nonlabored, good airflow, inspiratory/expiratory crackles at the bases-one third up on the right, patchy on the left Cardiac-regular rhythm, S1-S2 Abd-soft, nontender, obese, active bowel sounds Ext-without edema Skin-generalized erythema medial aspect of left arm/forearm, patchy erythema medial right forearm-no urticaria present Psych-cooperative, dull - Height/Weight/BMI: Height 1.7 m Weight 82.9 kg Body Mass Index 29.8 Results - Labs CBC & Chem 7: 06/28/17 05:29 06/28/17 05:29 Assessment and Plan (1) HCAP (healthcare-associated pneumonia) Current visit: Yes Status: Acute (2) Hypoxemia Current visit: Yes Status: Acute Assessment and Plan: Assessment Severe sepsis (SIRS markers - Leukocytosis, tachycardic, elevated lactate, encephalopathy) Health Care Associated Pneumonia (negative for influenza) Acute hypoxic respiratory failure Episodic apnea-suspect sleep apnea Paroxysmal atrial fibrillation, history of cardiac arrhythmia Encephalopathy Hypernatremia (POA) COPD (Home O2 2L at night only) Suspect restrictive lung disease secondary to kyphosis Mild pulmonary hypertension Tobacco dependency CHF - diastolic/valvular, EF 70% HTN HDL Type II DM OAB Macrocytic anemia Constipation Schizophrenia Depression/Bipolar Tardive dyskinesia Psychogenic polydipsia Overweight Plan Continues on Levaquin, Vancomycin and cefepime for health care associated pneumonia. Day #4 of antibiotics. Supplemental O2 to maintain saturations - currently requiring 2-4 L. Nocturnal oximetry tonight for evaluation of described episodes apnea. ABG in a.m. Attempting to clarify records from [facility] to determine nature of prior arrhythmia-paperwork not currently on chart. Will contact guardian if paperwork located. Chest x-ray yesterday suggested possible aspiration with development of new infiltrates on the right in addition to prior infiltrates on the left. Speech therapy consulted. Multiple chest x-rays reviewed over the past 6 weeks-old read as pulmonary edema --may represent chronic markings/scarring. ProBNP minimally elevated. Continued diuresis with oral Lasix-dose increased to 40 mg daily. Blood sugars adequately controlled, consistently under 200. Blood pressure stable. Remains somnolent-noon dose of Seroquel on hold. May require geriatric psychiatry consult for further adjustment of medications. Baseline unknown. Telemetry strips reviewed by myself, multiple x-rays reviewed by myself, discussed with nursing; limited old records reviewed. DVT Prophylaxis: SCD's Resuscitation Status: Full Code - Physician Narrative Narrative: Date: 06/28/17 Time: 1412 Hospital Course Summary Disclaimer: The visit summary below is not to be considered part of the above Progress Note. Hospital Course: 06/25/17 [place]mission [place] [facility] [place] secondary to pneumonia Anticipate greater than 2 midnights of care needed. Levaquin started in ED and Vancomycin added by Telehospitalist. Will add cefepime to due health care associated pneumonia. Supplemental O2 to maintain saturations. Neb Treatments of DuoNeb and Budesonide. Acapella to help loosen secretions. Robitussin DM and Ricola prn cough. RT for tobacco cessation. Check ECHO due to Hx CHF. IVF for support, monitoring volume status. Trend Lactate. Monitor sugars - hold metformin secondary to increased lactate. Carb consistent diet. SCD for DVT prevention. Full code as per her request. Care to return to Dr Santana at time of discharge from [facility] [place] 06/26/17 Continues on Levaquin, Vancomycin and cefepime due health care associated pneumonia. Leukocytosis improved. Supplemental O2 to maintain saturations - currently requiring 2 L. Continue Neb Treatments of DuoNeb and Budesonide. Acapella to help loosen secretions. Robitussin DM and Ricola prn cough. Metformin remains on hold secondary to increased lactate on admission (has normalized). BS's have been stable. Will discontinue IVF as oral intake doing well. Consult PT/OT to help improve strength and functional abilities. 06/27/17 Continues on levofloxacin and cefepime for health care associated pneumonia. Day # 3 of antibiotics. Can stop vancomycin. Supplemental O2 to maintain saturations - currently requiring 4 L. Encourage nurse to have patient get up today. Wean O2 as able. Chest x-ray ordered given her increased oxygen needs. CXR showing increase pulmonary edema-IVF have been stopped. Will give Lasix 40mg po x1 and also Diamox 500mg x1 (CO2 with elevation). Continue Neb Treatments of DuoNeb and Budesonide. Acapella to help loosen secretions. Robitussin DM and Ricola prn cough. Nursing noting somnolence today at noon - will place noon dose of Seroquel on hold. Resume home metformin. Patient is eating and drinking well. 06/28/17 Supplemental O2 to maintain saturations - currently requiring 2-4 L. Nocturnal oximetry tonight for evaluation of described episodes apnea. ABG in a.m. Attempting to clarify records from [facility] to determine nature of prior arrhythmia-paperwork not currently on chart. Will contact guardian if paperwork located. Chest x-ray yesterday suggested possible aspiration with development of new infiltrates on the right in addition to prior infiltrates on the left. Speech therapy consulted. Multiple chest x-rays reviewed over the past 6 weeks-old read as pulmonary edema --may represent chronic markings/scarring. ProBNP minimally elevated. Continued diuresis with oral Lasix-dose increased to 40 mg daily. Blood sugars adequately controlled, consistently under 200. Blood pressure stable. Remains somnolent-noon dose of Seroquel on hold. May require geriatric psychiatry consult for further adjustment of medications. Baseline unknown.
[2017-06-28] MEDS: SALINE FLUSH 10ml SYRINGE IVF PRN (14:47)
[2017-06-28] MEDS: HYDROCORTISONE 2.5% CREAM 30gm TOP PRN ×2 (18:21→22:25)
[2017-06-28] MEDS ORDERED: QUETIAPINE 100 MG TABLET PO SCH (21:00)
[2017-06-28] MEDS: SIMVASTATIN 20 MG TABLET PO SCH (22:21)
[2017-06-28] MEDS: LISINOPRIL 2.5 MG TABLET PO SCH (22:22)
[2017-06-29] MEDS: ALBUTEROL/IPRATROPIUM 2.5mg-0.5mg/3ml NEB AEROSOL SCH ×6 (01:00→20:59)
[2017-06-29] MEDS: CEFEPIME 1 GM in NS 50 ML IV SCH (01:27)
[2017-06-29] MEDS: HYDROCORTISONE 2.5% CREAM 30gm TOP PRN ×2 (06:01→14:30)
[2017-06-29] MEDS: LEVOFLOXACIN PB 750 MG/150 ML BAG IV SCH (06:25)
[2017-06-29] MEDS: CITALOPRAM 20 MG TABLET PO SCH (09:23)
[2017-06-29] MEDS: TRAZODONE 50 MG TABLET PO SCH (09:23)
[2017-06-29] MEDS: QUETIAPINE 200 MG TABLET PO SCH ×2 (09:24→20:24)
[2017-06-29] MEDS: CALCIUM 500 + VIT D 200 TABLET PO SCH (09:25)
[2017-06-29] MEDS: ASPIRIN *EC* 81 MG TABLET PO SCH (09:25)
[2017-06-29] MEDS: ACETAMINOPHEN 500 MG TABLET PO SCH ×3 (09:25→20:26)
[2017-06-29] MEDS: MULTI-VITAMIN PLAIN TABLET PO SCH (09:25)
[2017-06-29] MEDS: FUROSEMIDE 20 MG TABLET PO SCH (09:25)
[2017-06-29] MEDS: ASCORBIC ACID 500 MG TABLET PO SCH ×2 (09:26→20:26)
[2017-06-29] MEDS: SALINE FLUSH 10ml SYRINGE IVF PRN ×2 (09:26→14:28)
[2017-06-29] MEDS: METFORMIN 500 MG TABLET PO SCH ×2 (09:26→17:40)
[2017-06-29] MEDS: BUDESONIDE INH.SOLN 0.5mg/2ml NEB AEROSOL SCH ×2 (10:17→20:59)
--- NOTE | 2017-06-29 19:32 | Progress Note ---
- Date 06/29/17 Subjective: Mrs. Hernandez was up in a chair when seen earlier this afternoon. She reports that she feels better and was able to tell me that she chokes occasionally when she swallows. She then talked about her dentures and random other topics. Occasional responses corresponded to the question asked but she often spoke about unrelated subjects. She denied dyspnea or cough, denied chest pain or palpitations, and denied nausea today. She reports that her appetite is better. Nursing agreed that she's been more alert today and has been following some instructions. Nursing additionally reports persistent productive cough. Cefepime was discontinued overnight due to worsening of rash. Objective Vital signs: Temperature 99 F 06/29/17 15:49 Pulse Rate 92 06/29/17 16:00 Respiratory Rate 18 06/29/17 16:52 Blood Pressure 122/68 06/29/17 15:49 Pulse Oximetry 98 06/29/17 16:52 Weight stable Oral intake improved today EXAM General-NAD, alert, mumbled speech HEENT-conjunctiva clear, EOMI, sclera anicteric, oropharynx clear Lungs-respirations nonlabored, good airflow, no wheezing, inspiratory/ expiratory crackles alf up the left base posteriorly and at the right base Cardiac-regular rhythm, S1-S2 Abd-soft, nontender Ext-trace edema Skin-fading patching erythema on the medial aspect of forearms-diminished from yesterday; increased macular erythematous rash across back consistent with drug rash; no rash involving the neck or face. Neuro-moving upper extremities well Psych-oriented to [facility], spring time and can tell me that she lives in [place] and her date of . - Rhythm: Normal Sinus Rhythm (without recurrent atrial fibrillation overnight) Height/Weight/BMI: Height 1.7 m Weight 82.6 kg Body Mass Index 29.8 Results - Labs CBC & Chem 7: 06/29/17 04:33 06/29/17 04:33 Labs: Phosphorus 4.9, magnesium 1.9, albumin 3.5 Iron studies/B-12 pending - ABG Interpretation Attestation: I reviewed and interpreted this ABG. (minor acute respiratory acidosis superimposed on chronic compensated hypercarbia, hypoxia) ABG results: 06/29/17 07:09 ABG pH 7.331 L ABG pCO2 56 H ABG pO2 85.4 ABG HCO3 29.4 H ABG Total CO2 31.1 H ABG O2 Saturation 95.4 ABG Base Excess 2.6 H Blood gas obtained on 3 L supplemental oxygen Assessment and Plan (1) HCAP (healthcare-associated pneumonia) Current visit: Yes Status: Acute (2) Hypoxemia Current visit: Yes Status: Acute Assessment and Plan: Assessment Severe sepsis (SIRS markers - Leukocytosis, tachycardic, elevated lactate, encephalopathy) Health Care Associated Pneumonia (negative for influenza) Acute hypoxic respiratory failure Episodic apnea-suspect sleep apnea Paroxysmal atrial fibrillation, history of cardiac arrhythmia Encephalopathy Hypernatremia (POA) COPD (Home O2 2L at night only) Suspect restrictive lung disease secondary to kyphosis Mild pulmonary hypertension Tobacco dependency CHF - diastolic/valvular, EF 70% HTN HDL Type II DM OAB Macrocytic anemia Constipation Schizophrenia Depression/Bipolar Tardive dyskinesia Psychogenic polydipsia Overweight Probable drug reaction to cefepime Macrocytic anemia Plan Continues on Levaquin and Vancomycin; cefepime discontinued due to rash. Day #5 of antibiotics. Supplemental O2 to maintain saturations - currently requiring 2-4 L. Speech therapy evaluation tomorrow. Nocturnal oximetry overnight revealed recurrent hypoxia with total of 2 hrs 6 mins O2 sat <89% despite initiation of 2 L oxygen after 1 hour with titration up to 3 L after approximately 1hr later. [place] pattern later in the night with desaturations as low as 72% (on 3 L oxygen at the time). Suggestive of sleep apnea. Blood gas suggests chronic hypercarbia. I will attempt to discuss treatment options with patient's guardian tomorrow. Telemetry strips reviewed-no indication of recurrent atrial fibrillation overnight; hospital records from [place] in May indicated paroxysmal atrial fibrillation during that hospitalization also for pneumonia. Multiple chest x-rays over the past 6 weeks-old read as pulmonary edema--may represent chronic markings/scarring. ProBNP minimally elevated. Continued diuresis with oral Lasix-dose increased to 40 mg daily. Blood sugars adequately controlled, consistently under 200. Blood pressure stable. Somnolence improved after Seroquel decreased to 200 mg twice a day; psychiatric medications were held during [place] hospitalization due to excessive lethargy. Iron studies/B-12 pending to evaluate anemia. Telemetry strips reviewed by myself, discussed with nursing. DVT Prophylaxis: SCD's Resuscitation Status: Full Code - Physician Narrative Narrative: Date: 06/29/17 Time: 1923 Hospital Course Summary Disclaimer: The visit summary below is not to be considered part of the above Progress Note. Hospital Course: 06/25/17 [place]mission [place] [facility] of sepsis secondary to pneumonia Anticipate greater than 2 midnights of care needed. Levaquin started in ED and Vancomycin added by Telehospitalist. Will add cefepime to due health care associated pneumonia. Supplemental O2 to maintain saturations. Neb Treatments of DuoNeb and Budesonide. Acapella to help loosen secretions. Robitussin DM and Ricola prn cough. RT for tobacco cessation. Check ECHO due to Hx CHF. IVF for support, monitoring volume status. Trend Lactate. Monitor sugars - hold metformin secondary to increased lactate. Carb consistent diet. SCD for DVT prevention. Full code as per her request. Care to return to Dr Santana at time of discharge from [facility]. 06/26/17 Continues on Levaquin, Vancomycin and cefepime due health care associated pneumonia. Leukocytosis improved. Supplemental O2 to maintain saturations - currently requiring 2 L. Continue Neb Treatments of DuoNeb and Budesonide. Acapella to help loosen secretions. Robitussin DM and Ricola prn cough. Metformin remains on hold secondary to increased lactate on admission (has normalized). BS's have been stable. Will discontinue IVF as oral intake doing well. Consult PT/OT to help improve strength and functional abilities. 06/27/17 Continues on levofloxacin and cefepime for health care associated pneumonia. Day # 3 of antibiotics. Can stop vancomycin. Supplemental O2 to maintain saturations - currently requiring 4 L. Encourage nurse to have patient get up today. Wean O2 as able. Chest x-ray ordered given her increased oxygen needs. CXR showing increase pulmonary edema-IVF have been stopped. Will give Lasix 40mg po x1 and also Diamox 500mg x1 (CO2 with elevation). Continue Neb Treatments of DuoNeb and Budesonide. Acapella to help loosen secretions. Robitussin DM and Ricola prn cough. Nursing noting somnolence today at noon - will place noon dose of Seroquel on hold. Resume home metformin. Patient is eating and drinking well. 06/28/17 Supplemental O2 to maintain saturations - currently requiring 2-4 L. Nocturnal oximetry tonight for evaluation of described episodes apnea. ABG in a.m. Attempting to clarify records from intermediate to determine nature of prior arrhythmia-paperwork not currently on chart. Will contact guardian if paperwork located. Chest x-ray yesterday suggested possible aspiration with development of new infiltrates on the right in addition to prior infiltrates on the left. Speech therapy consulted. Multiple chest x-rays reviewed over the past 6 weeks-old read as pulmonary edema --may represent chronic markings/scarring. ProBNP minimally elevated. Continued diuresis with oral Lasix-dose increased to 40 mg daily. Blood sugars adequately controlled, consistently under 200. Blood pressure stable. Remains somnolent-noon dose of Seroquel on hold. May require geriatric psychiatry consult for further adjustment of medications. Baseline unknown. 06/29/17 Cefepime discontinued overnight due to increasing rash which appears to be fading today. Continue Levaquin/vancomycin for pneumonia. Speech therapy evaluation tomorrow. Possible aspiration. Patient more alert following reduction in Seroquel dose-similar problems with excessive somnolence described last month when hospitalized in [place]. No recurrence of atrial fibrillation following initiation of metoprolol yesterday-history of paroxysmal A. fib during [place] hospitalization. Overnight oximetry/ABG consistent with sleep apnea. Will discuss further with guardian.
[2017-06-29] MEDS: LISINOPRIL 2.5 MG TABLET PO SCH (20:24)
[2017-06-29] MEDS: SIMVASTATIN 20 MG TABLET PO SCH (20:25)
[2017-06-30] MEDS: ALBUTEROL/IPRATROPIUM 2.5mg-0.5mg/3ml NEB AEROSOL SCH ×6 (00:48→18:57)
[2017-06-30] MEDS: LEVOFLOXACIN PB 750 MG/150 ML BAG IV SCH (04:35)
[2017-06-30] MEDS: BUDESONIDE INH.SOLN 0.5mg/2ml NEB AEROSOL SCH ×2 (06:52→18:57)
[2017-06-30] MEDS: FUROSEMIDE 20 MG TABLET PO SCH (10:09)
[2017-06-30] MEDS: MULTI-VITAMIN PLAIN TABLET PO SCH (10:09)
[2017-06-30] MEDS: CITALOPRAM 20 MG TABLET PO SCH (10:09)
[2017-06-30] MEDS: ACETAMINOPHEN 500 MG TABLET PO SCH ×3 (10:09→22:16)
[2017-06-30] MEDS: METFORMIN 500 MG TABLET PO SCH ×2 (10:10→16:36)
[2017-06-30] MEDS: CALCIUM 500 + VIT D 200 TABLET PO SCH (10:10)
[2017-06-30] MEDS: QUETIAPINE 200 MG TABLET PO SCH ×2 (10:10→22:30)
[2017-06-30] MEDS: TRAZODONE 50 MG TABLET PO SCH (10:11)
[2017-06-30] MEDS: ASPIRIN *EC* 81 MG TABLET PO SCH (10:12)
[2017-06-30] MEDS: ASCORBIC ACID 500 MG TABLET PO SCH ×2 (10:12→22:29)
--- NOTE | 2017-06-30 20:23 | Progress Note ---
- Date 06/30/17 Subjective: Mrs. Hernandez was resting in the chair when seen earlier today. She reported that her breathing was a little bit better, that she didn't have much cough, and that she had no pleuritic pain. She reported no nausea or vomiting and no diarrhea. She denied dysuria or fever. She reported that she wasn't having much itching any longer and that nursing is putting a cream on her skin. When asked about working with speech therapy she rambled a little bit but told me she didn' t want to choke to . Objective Vital signs: Temperature 98.4 F 06/30/17 15:54 Pulse Rate 93 06/30/17 16:00 Respiratory Rate 16 06/30/17 18:58 Blood Pressure 123/69 06/30/17 15:54 Pulse Oximetry 95 06/30/17 18:58 NAD, awake, much more alert than when I originally saw her 2 days ago Speech moderately dysarthric/mumbled Respirations nonlabored, good airflow, faint inspiratory/expiratory crackles fci up the lung [place] posteriorly Regular rhythm, S1-S2 Abdomen soft, obese, nontender, bowel sounds present Trace edema bilateral ankles MAEW, trying to reposition herself in the chair. Macular erythematous rash on the back and abdomen, face not involved and minimal involvement in the forearms. Rhythm: Normal Sinus Rhythm (without recurrent atrial fibrillation overnight) Height/Weight/BMI: Height 1.7 m Weight 83.5 kg Body Mass Index 29.8 Results - Labs CBC & Chem 7: 06/30/17 05:21 06/30/17 05:21 Labs: Iron 44, TIBC 254, iron saturation 17, vitamin B-12 623 - ABG Interpretation ABG results: 06/29/17 07:09 ABG pH 7.331 L ABG pCO2 56 H ABG pO2 85.4 ABG HCO3 29.4 H ABG Total CO2 31.1 H ABG O2 Saturation 95.4 ABG Base Excess 2.6 H Assessment and Plan (1) HCAP (healthcare-associated pneumonia) Current visit: Yes Status: Acute (2) Hypoxemia Current visit: Yes Status: Acute Assessment and Plan: Assessment Severe sepsis (SIRS markers - Leukocytosis, tachycardic, elevated lactate, encephalopathy) Health Care Associated Pneumonia (negative for influenza) Acute hypoxic respiratory failure Episodic apnea-suspect sleep apnea Paroxysmal atrial fibrillation, history of cardiac arrhythmia Encephalopathy Hypernatremia (POA) Dysphagia COPD (Home O2 2L at night only) Suspect restrictive lung disease secondary to kyphosis Mild pulmonary hypertension Tobacco dependency CHF - diastolic/valvular, EF 70% HTN HDL Type II DM OAB Macrocytic anemia Constipation Schizophrenia Depression/Bipolar Tardive dyskinesia Psychogenic polydipsia Overweight Probable drug reaction to cefepime Macrocytic anemia Plan Improved on Levaquin and Vancomycin; cefepime discontinued due to rash. Day #6 of antibiotics. Check MRSA nasal swab-if negative will discontinue vancomycin. Convert Levaquin to oral administration. Supplemental O2 to maintain saturations - currently requiring 1 L. Speech therapy did not identify overt aspiration but indicated discoordinated swallow; recommended soft diet and continued speech therapy. Nocturnal oximetry overnight revealed recurrent hypoxia with total of 2 hrs 6 mins O2 sat <89% despite initiation of 2 L oxygen after 1 hour with titration up to 3 L after approximately 1hr later. [place] pattern later in the night with desaturations as low as 72% (on 3 L oxygen at the time). Suggestive of sleep apnea. Blood gas suggests chronic hypercarbia. I will attempt to discuss treatment options with patient's guardian tomorrow. Will discuss need for formal sleep study with PCP at discharge. Telemetry strips reviewed-no indication of recurrent atrial fibrillation on initiation of metoprolol. Continued diuresis with oral Lasix. Blood sugars adequately controlled, consistently under 200 on metformin twice a day. Blood pressure stable on low-dose metoprolol. Somnolence improved after Seroquel decreased to 200 mg twice a day; psychiatric medications were held during [place] hospitalization due to excessive lethargy. Iron studies/B-12 unremarkable, suggest anemia of chronic disease. Message left for patient's guardian-Will attempt to contact again tomorrow. Resuscitation Status: Full Code - Physician Narrative Narrative: Date: 06/30/17 Time: 2019 Hospital Course Summary Disclaimer: The visit summary below is not to be considered part of the above Progress Note. Hospital Course: 06/25/17 Admission Inpatient admission at [facility] [place] for treatment of sepsis secondary to pneumonia Anticipate greater than 2 midnights of care needed. Levaquin started in ED and Vancomycin added by Telehospitalist. Will add cefepime to due health care associated pneumonia. Supplemental O2 to maintain saturations. Neb Treatments of DuoNeb and Budesonide. Acapella to help loosen secretions. Robitussin DM and Ricola prn cough. RT for tobacco cessation. Check ECHO due to Hx CHF. IVF for support, monitoring volume status. Trend Lactate. Monitor sugars - hold metformin secondary to increased lactate. Carb consistent diet. SCD for DVT prevention. Full code as per her request. Care to return to Dr Santana at time of discharge from [facility]. 06/26/17 Continues on Levaquin, Vancomycin and cefepime due health care associated pneumonia. Leukocytosis improved. Supplemental O2 to maintain saturations - currently requiring 2 L. Continue Neb Treatments of DuoNeb and Budesonide. Acapella to help loosen secretions. Robitussin DM and Ricola prn cough. Metformin remains on hold secondary to increased lactate on admission (has normalized). BS's have been stable. Will discontinue IVF as oral intake doing well. Consult PT/OT to help improve strength and functional abilities. 06/27/17 Continues on levofloxacin and cefepime for health care associated pneumonia. Day # 3 of antibiotics. Can stop vancomycin. Supplemental O2 to maintain saturations - currently requiring 4 L. Encourage nurse to have patient get up today. Wean O2 as able. Chest x-ray ordered given her increased oxygen needs. CXR showing increase pulmonary edema-IVF have been stopped. Will give Lasix 40mg po x1 and also Diamox 500mg x1 (CO2 with elevation). Continue Neb Treatments of DuoNeb and Budesonide. Acapella to help loosen secretions. Robitussin DM and Ricola prn cough. Nursing noting somnolence today at noon - will place noon dose of Seroquel on hold. Resume home metformin. Patient is eating and drinking well. 06/28/17 Supplemental O2 to maintain saturations - currently requiring 2-4 L. Nocturnal oximetry tonight for evaluation of described episodes apnea. ABG in a.m. Attempting to clarify records from skilled nursing to determine nature of prior arrhythmia-paperwork not currently on chart. Will contact guardian if paperwork located. Chest x-ray yesterday suggested possible aspiration with development of new infiltrates on the right in addition to prior infiltrates on the left. Speech therapy consulted. Multiple chest x-rays reviewed over the past 6 weeks-old read as pulmonary edema --may represent chronic markings/scarring. ProBNP minimally elevated. Continued diuresis with oral Lasix-dose increased to 40 mg daily. Blood sugars adequately controlled, consistently under 200. Blood pressure stable. Remains somnolent-noon dose of Seroquel on hold. May require geriatric psychiatry consult for further adjustment of medications. Baseline unknown. 06/29/17 Cefepime discontinued overnight due to increasing rash which appears to be fading today. Continue Levaquin/vancomycin for pneumonia. Speech therapy evaluation tomorrow. Possible aspiration. Patient more alert following reduction in Seroquel dose-similar problems with excessive somnolence described last month when hospitalized in [place]. No recurrence of atrial fibrillation following initiation of metoprolol yesterday-history of paroxysmal A. fib during [place] hospitalization. Overnight oximetry/ABG consistent with sleep apnea. Will discuss further with guardian. 06/30/17 Improved on Levaquin and Vancomycin; cefepime discontinued due to rash. Day #6 of antibiotics. Check MRSA nasal swab-if negative will discontinue vancomycin. Convert Levaquin to oral administration. Supplemental O2 to maintain saturations - currently requiring 1 L. Speech therapy did not identify overt aspiration but indicated discoordinated swallow; recommended soft diet and continued speech therapy. No recurrence of atrial fibrillation on metoprolol; blood pressure/blood sugars adequately controlled on current regimen.
[2017-06-30] MEDS: SIMVASTATIN 20 MG TABLET PO SCH (22:29)
[2017-06-30] MEDS: LISINOPRIL 2.5 MG TABLET PO SCH (22:29)
[2017-07-01] MEDS ORDERED: LEVOFLOXACIN 750 MG TABLET PO SCH (06:30)
[2017-07-01] MEDS: BUDESONIDE INH.SOLN 0.5mg/2ml NEB AEROSOL SCH (06:50)
[2017-07-01] MEDS: ALBUTEROL/IPRATROPIUM 2.5mg-0.5mg/3ml NEB AEROSOL SCH ×3 (06:50→14:50)
[2017-07-01 08:28] VITALS: BP 119/67; PULSE 98; TEMP 98.1
[2017-07-01] MEDS: METFORMIN 500 MG TABLET PO SCH (09:32)
[2017-07-01] MEDS: ASPIRIN *EC* 81 MG TABLET PO SCH (09:33)
[2017-07-01] MEDS: FUROSEMIDE 20 MG TABLET PO SCH (09:33)
[2017-07-01] MEDS: ACETAMINOPHEN 500 MG TABLET PO SCH (09:33)
[2017-07-01] MEDS: ASCORBIC ACID 500 MG TABLET PO SCH (09:33)
[2017-07-01] MEDS: CITALOPRAM 20 MG TABLET PO SCH (09:34)
[2017-07-01] MEDS: TRAZODONE 50 MG TABLET PO SCH (09:34)
[2017-07-01] MEDS: CALCIUM 500 + VIT D 200 TABLET PO SCH (09:34)
[2017-07-01] MEDS: QUETIAPINE 200 MG TABLET PO SCH (09:36)
[2017-07-01] MEDS: MULTI-VITAMIN PLAIN TABLET PO SCH (09:37)
--- NOTE | 2017-07-01 10:20 | Discharge Summary ---
Discharge Information Date of admission: 06/25/17 03:38 Anticipated date of discharge: 07/01/17 Attending Physician: Enid Wooten MD Primary care physician: Bethanie Santana MD - Discharge Diagnosis (1) Hypoxemia Status: Acute (2) HCAP (healthcare-associated pneumonia) Status: Acute Severe sepsis (SIRS markers - Leukocytosis, tachycardic, elevated lactate, encephalopathy) Health Care Associated Pneumonia (negative for influenza) Acute hypoxic respiratory failure Episodic apnea-suspect sleep apnea Paroxysmal atrial fibrillation, history of cardiac arrhythmia Encephalopathy Hypernatremia (POA) Dysphagia COPD (Home O2 2L at night only) Suspect restrictive lung disease secondary to kyphosis Mild pulmonary hypertension Tobacco dependency CHF - diastolic/valvular, EF 70% HTN HDL Type II DM OAB Macrocytic anemia Constipation Schizophrenia Depression/Bipolar Tardive dyskinesia Psychogenic polydipsia Overweight Probable drug reaction to cefepime Macrocytic anemia - Procedures Procedures: Date of Exam: 06/25/17 Type of Exam(s): US echo doppler complete DATE 06/25/2017 INDICATION Congestive heart failure TECHNICAL QUALITY: Technically fair 2D, M-mode and Doppler echocardiographic images were submitted for interpretation. FINDINGS 1. CARDIAC CHAMBERS. Left atrium is mildly enlarged, measures 4.4 cm. All other cardiac chambers are normal in size. Aortic root diameter is normal. RV size and contractility appear normal. 2. LV FUNCTION. Wall thickness is normal. Wall motion analysis is normal. Systolic function is normal. EF is estimated at 70%. Diastolic dysfunction Grade I/IV is present. This may be normal for patient's age. 3. VALVES. Aortic and mitral valves exhibit sclerotic changes. Valve opening is normal. Mitral annular calcification posteriorly is present. Valve excursion is normal. Tricuspid valve is not well seen but does not exhibit any significant abnormality. 4. DOPPLER. Doppler shows a trace of tricuspid regurgitation with a systolic PA pressure estimated at 43 mmHg per Bernoulli equation. There is some increased flow velocity noted at the aortic valve and subaortic valve levels, in order 2.38 and 1.85 m/sec with calculated aortic valve area remaining normal at 2.5 cm2. Peak and mean pressure gradient of 23 and 12 mmHg. The signal at the LVOT level appears delayed. Valsalva maneuver was not performed. There was a mild pressure gradient across the mitral valve of 3 mmHg indicative of mild mitral stenosis. Maximum gradient was 11 mmHg. I don't appreciate REINA or significant LVH although the septum appears sigmoid associated with unfolding of the aorta. The patient is tachycardic during the study which may in part explain the increased flow velocities and the gradients as above. IMPRESSION 1. Mild left atrial enlargement. 2. Normal LV systolic function actually appearing hyperdynamic, LVEF of 70%. 3. Mild diastolic dysfunction, normal for patient's age. 4. Increased flow velocity at the LVOT level as described above, clinical correlation is recommended. Additional Doppler with Valsalva maneuver may be warranted. 5. Mild pulmonary hypertension. 6. Sigmoid septum. 7. Mitral annular calcification with hemodynamic of mild mitral stenosis, at a heart rate of 100 beats per minute. - Laboratory Labs: 06/30/17 05:21 06/30/17 05:21 - Radiology Radiology: Date of Exam: 06/27/17 INDICATION: increasing O2 needs PROCEDURE: CHEST 2-VIEWS UPRIGHT (PA & LAT) FINDINGS: Pulmonary edema is again noted with bilateral lower lobe airspace consolidation. This is somewhat worsened on the right. Small effusions. No pneumothorax. Heart size and mediastinal contours are stable. Impression: Worsening right lower lobe pneumonia or aspiration with superimposed moderate pulmonary edema. History of Present Illness HPI: Ms Hernandez is a 77 y/o resident of a [place] w/ past medical h/o COPD, hypoxia at night requiring 2-3 L/min O2 per [place], CHF, depression, schizophrenia and Type 2 DM who presents to ER w/ increasing hypoxia and O2 needs. Patient per report has had fatigue, malaise, fever to 100.2 F yesterday, cough and hypoxia at detention requiring increasing amounts of O2. She was seen in ER within past week for hypoxia however improved w/ neb treatments. Patient returns w/ worsening symptoms and currently on 5 L/min. Received neb treatment per eMS en route to ER In ER patient was afebrile, slightly tachypneic however did not c/o feeling SOA or dsypneic. Her WBC was 12.8 and on CXR has RLL infiltrate not on prior CXR done within the past week. BNP was 316 and lactate wnl. Patient started on Levaquin 750mg IV and will be admitted to the Hospitalist service for further evaluation and management. Patient currently states she is feeling better and on 4 L/min O2 per [place]. She provides some of the history however most is obtained from nursing, ER and [place] notes. Objective Vital signs: Temperature 98.1 F 07/01/17 08:27 Pulse Rate 98 07/01/17 08:27 Respiratory Rate 16 07/01/17 08:27 Blood Pressure 119/67 07/01/17 08:27 Pulse Oximetry 90 07/01/17 08:27 Rhythm: Normal Sinus Rhythm (without recurrent atrial fibrillation overnight) Height/Weight/BMI: Height 1.7 m Weight 83.5 kg Body Mass Index 29.8 - Constitutional Present: no acute distress (pt looks much better today - more alert, is feeding self. Responds appropriately to questions.), well nourished, well developed - Routine HEENT Exam Head: Present: normocephalic, atraumatic - Routine Respiratory Exam Present: CTA bilaterally (anteriorly). Absent: wheezes - Routine Cardiovascular Exam Present: RRR, no murmur - Routine Abdominal Exam Present: soft, non distended, non tender - Routine Extremities Exam Present: no edema, normal capillary refill - Routine Skin Exam Present: dry, warm - Routine Neurological Exam Present: alert, moving all extremities. Absent: normal speech (speech is easier to understand today) - Routine Lymphatic Exam Lymphatic: Absent: adenopathy - Routine Psychiatric Exam Present: normal affect, cooperative Hospital Course This is a general summary of the patient's hospital course. For more details refer to the complete medical record. Hospital course: 06/25/17 Admission Inpatient admission at [facility] for treatment of sepsis secondary to pneumonia Anticipate greater than 2 midnights of care needed. Levaquin started in ED and Vancomycin added by Telehospitalist. Will add cefepime to due health care associated pneumonia. Supplemental O2 to maintain saturations. Neb Treatments of DuoNeb and Budesonide. Acapella to help loosen secretions. Robitussin DM and Ricola prn cough. RT for tobacco cessation. Check ECHO due to Hx CHF. IVF for support, monitoring volume status. Trend Lactate. Monitor sugars - hold metformin secondary to increased lactate. Carb consistent diet. SCD for DVT prevention. Full code as per her request. Care to return to Dr Santana at time of discharge from [facility]. 06/26/17 Continues on Levaquin, Vancomycin and cefepime due health care associated pneumonia. Leukocytosis improved. Supplemental O2 to maintain saturations - currently requiring 2 L. Continue Neb Treatments of DuoNeb and Budesonide. Acapella to help loosen secretions. Robitussin DM and Ricola prn cough. Metformin remains on hold secondary to increased lactate on admission (has normalized). BS's have been stable. Will discontinue IVF as oral intake doing well. Consult PT/OT to help improve strength and functional abilities. 06/27/17 Continues on levofloxacin and cefepime for health care associated pneumonia. Day # 3 of antibiotics. Can stop vancomycin. Supplemental O2 to maintain saturations - currently requiring 4 L. Encourage nurse to have patient get up today. Wean O2 as able. Chest x-ray ordered given her increased oxygen needs. CXR showing increase pulmonary edema-IVF have been stopped. Will give Lasix 40mg po x1 and also Diamox 500mg x1 (CO2 with elevation). Continue Neb Treatments of DuoNeb and Budesonide. Acapella to help loosen secretions. Robitussin DM and Ricola prn cough. Nursing noting somnolence today at noon - will place noon dose of Seroquel on hold. Resume home metformin. Patient is eating and drinking well. 06/28/17 Supplemental O2 to maintain saturations - currently requiring 2-4 L. Nocturnal oximetry tonight for evaluation of described episodes apnea. ABG in a.m. Attempting to clarify records from detention to determine nature of prior arrhythmia-paperwork not currently on chart. Will contact guardian if paperwork located. Chest x-ray yesterday suggested possible aspiration with development of new infiltrates on the right in addition to prior infiltrates on the left. Speech therapy consulted. Multiple chest x-rays reviewed over the past 6 weeks-old read as pulmonary edema --may represent chronic markings/scarring. ProBNP minimally elevated. Continued diuresis with oral Lasix-dose increased to 40 mg daily. Blood sugars adequately controlled, consistently under 200. Blood pressure stable. Remains somnolent-noon dose of Seroquel on hold. May require geriatric psychiatry consult for further adjustment of medications. Baseline unknown. 06/29/17 Cefepime discontinued overnight due to increasing rash which appears to be fading today. Continue Levaquin/vancomycin for pneumonia. Speech therapy evaluation tomorrow. Possible aspiration. Patient more alert following reduction in Seroquel dose-similar problems with excessive somnolence described last month when hospitalized in [place]. No recurrence of atrial fibrillation following initiation of metoprolol yesterday-history of paroxysmal A. fib during [place] hospitalization. Overnight oximetry/ABG consistent with sleep apnea. 06/30/17 Improved on Levaquin and Vancomycin; cefepime discontinued due to rash. Day #6 of antibiotics. Check MRSA nasal swab-if negative will discontinue vancomycin. Convert Levaquin to oral administration. Supplemental O2 to maintain saturations - currently requiring 1 L. Speech therapy did not identify overt aspiration but indicated discoordinated swallow; recommended soft diet and continued speech therapy. No recurrence of atrial fibrillation on metoprolol; blood pressure/blood sugars adequately controlled on current regimen. 07/01/17 Day #7 of Levaquin and Vancomycin. Levaquin is now p.o. Continue 750mg q d x 7 more days. Will DC Vanco as MRSA swab is neg. Plan to DC back to facility today with ST/OT/PT to eval and tx - develop FMP. Continue Duonebs routinely x 1 wk then PRN Time spent with patient: discharge greater than 30 minutes Resuscitation Status: Full Code Discharge Plan - Discharge Disposition Discharge Date: 07/01/17 Disposition: 04 To [facility] Home/Facility *Condition: Stable Reason For Visit (Visit label in EMR): RLL Pneumonia, Hypoxia - Discharge Medications *Discharge Medications: New Albuterol/Ipratropium [Duoneb] 3 ml AEROSOL RTQID #28 each Guaifenesin/Dm Oral Liq [Robitussin Dm] 10 ml PO Q4H PRN udc PRN Reason: Cough /Congestion Hydrocortisone 2.5% Cream [Anusol-Hc 2.5% Cream] 1 applicatio TOP TID PRN tube PRN Reason: Itching Levofloxacin [Levaquin] 750 mg PO ACB tab Menthol Cough Drops [Ricola Sf] 1 lozenge MM PRN PRN lozenge PRN Reason: Cough Metoprolol Tartrate [Lopressor] 12.5 mg PO BIDWM tab Milk of Magnesia [Mom] 30 ml PO DAILY PRN udc PRN Reason: Constipation Quetiapine [SEROquel] 200 mg PO BID tab Furosemide [Lasix 20 mg Tab] 40 mg PO DAILY tab Continue Mag Hydrox/Aluminum Hyd/Simeth [Alum-Mag Hydroxide-Simeth Liq] 30 ml PO Q4H PRN PRN Reason: Prn Orders Lisinopril [Prinivil] 2.5 mg PO HS Bisacodyl Supp [Dulcolax] 10 mg RECTALLY DAILY PRN PRN Reason: Constipation Simvastatin 20 mg PO HS Multi-Vitamin Plain [Theragran] 1 tab PO DAILY Calcium 500 + D [Os Rajat-D 500] 1 tab PO DAILY Cholecalciferol (Vitamin D3) [Vitamin D3] 2,000 unit PO DAILY Trazodone [Desyrel] 25 mg PO QAM Citalopram [Celexa] 20 mg PO DAILY Oxybutynin Chloride [Oxybutynin Chloride ER] 10 mg PO DAILY Divalproex ER [Depakote ER] 250 mg PO HS Divalproex ER [Depakote ER] 1,500 mg PO HS Metformin HCl [Glucophage] 500 mg PO BIDWM Aspirin [Aspirin EC] 81 mg PO DAILY Magnesium Hydroxide [Milk of Magnesia] 30 ml PO DAILY PRN PRN Reason: Constipation Naproxen [Naprosyn 500 mg] 500 mg PO BID PRN PRN Reason: Pain /Fever Acetaminophen [Acetaminophen Extra Strength] 1,000 mg PO TID Ascorbate Calcium [Vitamin C] 500 mg PO BID Discontinued Codeine Phosphate/Guaifenesin [Robafen AC Oral Solution] 5 - 10 ml PO NOON PRN PRN Reason: Prn Orders CloNIDine [Catapres] 0.1 mg PO HS Furosemide [Lasix 20 mg Tab] 20 mg PO DAILY Quetiapine Fumarate [Seroquel] 300 mg PO BID Quetiapine Fumarate 200 mg PO NOON - Discharge Packet/Instructions *Diet: soft diet, 2000cal consistent carb diet *Activity: as tolerated. *Pain Management/Treatment: n/a *Wound Care: n/a *Expected Signs/Symptoms: continued slow improvement of cough and rash. *Notify Physician if: you develop fever or worsening rash or incresing shortness of breath *During Business Hours Contact: nurse at your facility *After Business Hours Contact: nurse at your facility *Pending Lab/Results: No Pending Lab - Referrals/Follow Up *Referrals/Follow Up: Bethanie Santana MD [Family Provider] - 1 Week - Patient Handouts Patient Handouts: Pneumonia (GEN) - Dismissal Complete Discharge Instructions are:: Incomplete Physician Narrative - Narrative Attestation Narrative: Date: 07/01/17 Time: 2039 I have independently evaluated and examined this patient. I reviewed the chart, the patient's history, and the ACCOUNT ASSOCIATE/PA's documented findings as above. We discussed and formulated the assessment and plan as above with additions as below: Lisa was up in a chair when seen. She reported that she has minimal cough today and that she isn't having difficulty breathing. She was pleased to learn that she be able to go home. Respirations nonlabored, good airflow, inspiratory/expiratory crackles posteriorly-more extensive on the left than on the right. No wheezing. Telemetry strips reviewed-no recurrent atrial fibrillation. Discharge plans discussed with Dr. Santana. I advised her findings of overnight oximetry and possible sleep apnea. Continue low-dose beta fady for atrial arrhythmias noted earlier in the hospitalization. Attempted to contact the guardian but hospital phones were not working and I could not obtain an outside line.
[2017-07-01 10:59] VITALS: RESP 24
--- NOTE | 2017-07-01 14:57 | Extended Care Facility Orders ---
Admission Orders Admit to:: [facility] Allergies/Adverse Reactions: Allergies amoxicillin [From Augmentin] Allergy (Verified 06/25/17 00:05) clavulanic acid [From Augmentin] Allergy (Verified 06/25/17 00:05) Admitting Diagnosis: RLL Pneumonia, Hypoxia Admitting Physician: Enid Wooten MD Attending Physician: Enid Wooten MD Code Status: Full Code Anticiapted Length of Stay: greater than 30 days Rehab Potential: good Rehab Prognosis: good Diet: 06/30/17 Dinner Consistent Carbohydrate Diet [DIET] Calorie Level: 2000 Food Consistency: SOFT May use Facility Protocol or Standing Orders: Yes May have flu vaccine: Yes Evaluations/Treatment: PT, OT Care Home Certification: I certify that SNF services are required to be given on an Inpatient basis because of the patients need for nursing home care on a continuing basis for the condition(s) for which he/she received inpatient hospital services prior to his/her transfer to the SNF. SNF inpatient care is necessary for the following reasons - Additional Information In Event of Arrest: Start CPR,call 911,send patient to the ER Referrals: Bethanie Santana MD [Family Provider] - Additional Orders: PT/ OT TO [facility]. Speech therapy - dysphagia evaluation. Accuchecks fasting. BMP on 07/07-dx DM, HTN; CBC 07/07-dx pneumonia. O2 at 2L per [place], titrate to maintain O2 sat >90%
[2017-07-01 15:00] VITALS: O2SAT 97
== END 2017-07-01 15:35 | DRG 871 ==
LOC: ED 23:52 → SUATTDRO 06-25 03:38 → MED 06-25 03:38
PROVIDERS: ADMIT Internal Medicine; ATTEND Internal Medicine